=== PATIENT | female | born 2000 | race Caucasian/White ===

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

== ENCOUNTER 2024-07-15 08:52 | Emergency (ER) | payer OTHER ==
[~2024-07-15] VITALS: Ht 170.2 cm; Wt 64.9 kg
[~2024-07-15 08:52] MED LIST changes: +JOLETAB; +MIRE1IUD IU; -MIREIUD IU; +ONDA-83 PO; -ONDA4TAB5 PO; +ZOFR4TAB14 PO; -ZOFR4TAB3 PO
[2024-07-15] MEDS: KETOROLAC 60MG 2ML VIAL IM ONE (10:02)
[2024-07-15] MEDS: PERCOCET 5MG/325MG TAB PO ONE (13:02)
[2024-07-15] MEDS ORDERED: MEDR4PAK PO (13:20)
[2024-07-15 13:49] VITALS: BP 116/59; TEMP 97.9; O2SAT 98
== END 2024-07-15 13:51 | disposition home or self-care (01) ==
LOC: M ED 08:52
DX: S66.201A Unspecified injury of extensor muscle, fascia and tendon of right thumb at wrist and hand level, initial encounter (principal); Y93.B9 Activity, other involving muscle strengthening exercises; Y99.1 Military activity; Z79.899 Other long term (current) drug therapy
CPT/HCPCS: 73130; 73200; 96372; 99283; J1885

== ENCOUNTER → 2024-09-09 | Outpatient (CLI) | payer OTHER ==
[~2024-09-09] MED LIST changes: +MEDR4PAK PO
== END ==
LOC: M SOG 13:11
PROVIDERS: ATTEND Orthopaedic Surgery Hand Surgery
DX: M79.644 Pain in right finger(s) (principal)

== ENCOUNTER → 2025-08-02 | Outpatient (REF) | payer OTHER ==
[2025-08-02 19:15] LABS: APPEARANCE, URINE TURBID (CLEAR); BACTERIA, URINE AUTO 2+ (NEGATIVE); BILIRUBIN, URINE AUTO NEGATIVE (NEGATIVE); BLOOD, URINE BLOOD 1+ (NEGATIVE); GLUCOSE, URINE (UA) AUTO NEGATIVE (NEGATIVE); KETONE, URINE AUTO 1+ mg/dL (NEGATIVE); LEUKOCYTE ESTERASE, URINE AUTO 3+ (NEGATIVE); MUCUS, URINE LARGE (NEGATIVE); NITRITE, URINE AUTO NEGATIVE (NEGATIVE); PROTEIN, URINE AUTO 2+ mg/dL (NEGATIVE); RBC, URINE AUTO 23 /HPF (0-3); SPECIFIC GRAVITY URINE AUTO 1.018 (1.002-1.035); SQUAMOUS EPITHELIAL CELL UR AU 8 /HPF (0-6); UROBILINOGEN, URINE AUTO 0.2 mg/dL (0.0-2.0); WBC, URINE AUTO TNTC /HPF (0-3)
== END ==
LOC: M LAB REF 18:47
PROVIDERS: ATTEND Physician Assistant Medical
DX: N39.0 Urinary tract infection, site not specified (principal)

== ENCOUNTER 2025-09-21 12:49 | Emergency (ER) | payer OTHER ==
[~2025-09-21] VITALS: Ht 170.2 cm; Wt 70.2 kg
[2025-09-21] MEDS ORDERED: THERTAB52 PO (13:03)
[2025-09-21 13:48] LABS: URINE PREG TEST NEGATIVE (NEGATIVE)
[2025-09-21 13:52] LABS: KETONE, URINE AUTO RFX NEGATIVE (NEGATIVE); LEUKOCYTE ESTERASE UR AUTO RFX NEGATIVE (NEGATIVE); MUCUS, URINE RFX SMALL (NEGATIVE); NITRITE, URINE AUTO RFX NEGATIVE (NEGATIVE); RBC, URINE AUTO RFX 0 /HPF (0-3); SQUAM EPITHELIAL CELL UR AURFX 5 /HPF (0-6); WBC, URINE AUTO RFX 1 /HPF (0-3)
[2025-09-21 20:09] LABS: BASO # 0.0 10^3/uL (0.0-0.2); BASO % 0.5 % (0.0-1.0); EOS # 0.1 10^3/uL (0.0-0.5); EOS % 1.3 % (0.0-3.0); LYMPH # 2.0 10^3/uL (1.5-5.0); LYMPH % 32.2 % (24.0-44.0); MONO # 0.5 10^3/uL (0.0-0.8); MONO % 8.4 % (2.0-8.0); NEUTROPHILS # 3.6 10^3/uL (1.5-8.5); NEUTROPHILS % 57.4 % (36.0-66.0); PLATELET COUNT, AUTOMATED 222 10^3/uL (150-450)
[2025-09-21] MEDS: KETOROLAC 30 MG/ML 1 ML VIAL IV ONE (20:11)
[2025-09-21] MEDS: NS (Normal Saline) 0.9% 1,000 ML IV ONE (20:11)
[2025-09-21] MEDS: ONDANSETRON 4MG/2ML VIAL IV ONE (20:11)
[2025-09-21 20:33] LABS: ALT/SGPT 14 U/L (7.0-40); AST/SGOT 13 U/L (<34)
[2025-09-21 22:16] LABS: CALCIUM LEVEL 9.2 MG/DL (8.5-10.1); CARBON DIOXIDE LEVEL 24 MMOL/L (20-31); CHLORIDE LEVEL 106 MMOL/L (98-107); CREATININE FOR GFR 0.67 MG/DL (0.55-1.30); GLOMERULAR FILTRATION RATE > 90.0 (>60); POTASSIUM SERUM 3.9 MMOL/L (3.5-5.1); SODIUM LEVEL 140 MMOL/L (136-145)
[2025-09-21] MEDS ORDERED: KETO-204 PO (23:11)
[2025-09-21 23:27] VITALS: BP 106/65; TEMP 98.1; O2SAT 99
== END 2025-09-21 23:31 | disposition home or self-care (01) ==
LOC: M ED 12:49
DX: N83.202 Unspecified ovarian cyst, left side (principal); R91.1 Solitary pulmonary nodule; K59.00 Constipation, unspecified; Z87.442 Personal history of urinary calculi; Z79.899 Other long term (current) drug therapy
CPT/HCPCS: 74176; 76856; 80048; 80076; 81001; 84703; 85025; 93976; 96361; 96374; 99284; J1885; J2405

== ENCOUNTER → 2025-11-11 | Outpatient (CLI) | payer OTHER ==
[~2025-11-11] MED LIST changes: +KETO-204 PO; +THERTAB52 PO
== END ==
LOC: M RAD 12:57
PROVIDERS: ATTEND Physician Assistant
DX: S09.93XA Unspecified injury of face, initial encounter (principal); W17.89XA Other fall from one level to another, initial encounter; Y92.9 Unspecified place or not applicable; Y93.9 Activity, unspecified; Y99.9 Unspecified external cause status